=== PATIENT | male | born 1940 | race Caucasian/White ===

== ENCOUNTER → 2018-12-03 | Outpatient (CLI) | payer MEDICARE, BC ==
[~2018-12-03] MED LIST: ASPIR-LOW81 MG PO; AVAPRO; AVAPRO TAB150 MG/TAB PO; CARDURA 8MG TAB8 MG PO; COZAAR100 MG PO; DOXAZOCIN; DOXAZOCIN PO; LEXAPRO 10MG10 MG PO; METOPROLOL SUCC25 MG PO; PROSCAR; PROSCAR 5MG5 MG PO; PROSCAR PO; TOPROL XL100 MG PO; ZOCOR 20MG20 MG PO
== END ==
LOC: COL.RAD 10:30
DX: E04.2 Nontoxic multinodular goiter (principal); M47.812 Spondylosis without myelopathy or radiculopathy, cervical region; I65.23 Occlusion and stenosis of bilateral carotid arteries; I65.03 Occlusion and stenosis of bilateral vertebral arteries; I77.1 Stricture of artery; R59.0 Localized enlarged lymph nodes
CPT/HCPCS: Q9967

== ENCOUNTER → 2018-12-05 | Outpatient (CLI) | payer MEDICARE, BC | LOC: COL.RAD 10:19 | DX: I77.9 Disorder of arteries and arterioles, unspecified (principal); E23.6 Other disorders of pituitary gland; G31.9 Degenerative disease of nervous system, unspecified; I67.82 Cerebral ischemia; R47.01 Aphasia ==

== ENCOUNTER → 2018-12-23 | Outpatient (CLI) | payer MEDICARE, BC | LOC: COL.VAS 08:00 | DX: I35.0 Nonrheumatic aortic (valve) stenosis (principal); I34.0 Nonrheumatic mitral (valve) insufficiency; I51.7 Cardiomegaly ==

== ENCOUNTER 2019-07-26 16:00 | Emergency (ER) | payer MEDICARE, BC ==
[~2019-07-26] VITALS: Ht 172.7 cm; Wt 72.7 kg
[2019-07-26 16:09] VITALS: TEMP 98.9
[2019-07-26 17:31] VITALS: BP 111/75; PULSE 76
== END 2019-07-26 17:32 | disposition home or self-care (01) ==
LOC: COL.ER 16:00
DX: S06.0X0A Concussion without loss of consciousness, initial encounter (principal); I10 Essential (primary) hypertension; R40.2412 Glasgow coma scale score 13-15, at arrival to emergency department; Z79.82 Long term (current) use of aspirin; W19.XXXA Unspecified fall, initial encounter; Y92.009 Unspecified place in unspecified non-institutional (private) residence as the place of occurrence of the external cause

== ENCOUNTER 2021-08-26 21:27 | Emergency (ER) | payer MEDICARE, BC ==
[~2021-08-26] VITALS: Ht 172.7 cm; Wt 77.3 kg
[~2021-08-26 21:27] MED LIST changes: +FLOMAX 0.40.4 MG/CAP PO; +MILK OF MA400 MG/52; +XANAX 0.5MG0.5 MG PO
[2021-08-26 21:37] VITALS: TEMP 97.4
[2021-08-26 22:39] LABS: COLLECTION METHOD IN
[2021-08-26 22:47] LABS: MUCOUS Present (NOT PRESENT); PH 6 (5-8); SQUAMOUS EPITHELIAL None Seen /hpf (0-10); URINE APPEARANCE Hazy (CLEAR/HAZY); URINE BACTERIA Rare /hpf (NONE SEEN); URINE BILIRUBIN Negative (NEGATIVE); URINE BLOOD 2+ (NEGATIVE); URINE CALCIUM OXALATE CRYSTAL Present (NOT PRESENT); URINE COLOR Red (YELLOW); URINE GLUCOSE 1+ (NEGATIVE); URINE KETONE Negative (NEGATIVE); URINE LEUKOCYTE ESTERASE Negative (NEGATIVE); URINE NITRATE Negative (NEGATIVE); URINE PROTEIN(semi-quant) 2+ (NEGATIVE); URINE RBC >50 /hpf (0-2); URINE UROBILINOGEN Negative (NEGATIVE)
[2021-08-26 23:10] VITALS: BP 144/82; PULSE 70
== END 2021-08-26 23:20 | disposition home or self-care (01) ==
LOC: COL.ER 21:27
PROVIDERS: Family Medicine
DX: R33.9 Retention of urine, unspecified (principal)

== ENCOUNTER 2021-08-30 14:21 | Inpatient (IN) | payer MEDICARE, BC ==
[~2021-08-30] VITALS: Ht 177.8 cm; Wt 79.2 kg
[2021-08-30] VITALS (435 sets, daily range): BP systolic 116–199; BP diastolic 61–90; PULSE 48–55; TEMP 97.1–98; O2SAT 87–100
[2021-08-30 14:44] LABS: BASO # 0.1 K/mm3 (0.0-0.2); BASO % 0.6 % (0.0-2.0); EOS # 0.2 K/mm3 (0.0-0.7); EOS % 2.4 % (0.0-4.0); GRAN # 5.9 K/mm3 (1.4-6.5); GRAN % 63.3 % (42.2-75.2); HEMATOCRIT 38.1 % (42.0-52.0); HEMOGLOBIN 12.9 g/dl (13.5-18.0); LYMPH # 2.1 K/mm3 (1.2-3.4); LYMPH % 22.1 % (20.0-51.0); MEAN CELL VOLUME 90 fl (80.0-100.0); MEAN CORPUSCULAR HEMOGLOBIN 30 pg (27-31); MEAN CORPUSCULAR HGB CONC 34 g/dl (33.0-37.0); MONO % 11.1 % (1.7-9.3); PLATELET COUNT 217 K/mm3 (130-400); RED BLOOD COUNT 4.25 M/mm3 (4.20-5.60); REDCELL DISTRIBUTION WIDTH-CV 12.8 % (11.5-14.5)
[2021-08-30 14:48] LABS: INR 1.2 (0.8-3.0)
[2021-08-30 14:51] LABS: PARTIAL THROMBOPLASTIN TIME 28.5 SECONDS (26.0-37.0)
[2021-08-30 15:03] LABS: ALANINE AMINOTRANSFERASE 6 U/L (0-55); ALBUMIN 2.6 gm/dL (3.4-4.8); ALKALINE PHOSPHATASE 59 U/L (40-150); ANION GAP 8 mmol/L (7-16); AST,SGOT 11 U/L (5-34); BILIRUBIN,TOTAL 0.6 mg/dL (0.2-1.2); BLOOD UREA NITROGEN 17 mg/dL (8-26); CALCIUM 7.9 mg/dL (8.4-10.2); CARBON DIOXIDE 22 mmol/L (23-31); CHLORIDE 100 mmol/L (98-107); CREATININE, serum 0.95 mg/dL (0.72-1.25); GLUCOSE 100 mg/dL (70-99); LIPASE 20 U/L (8-78); POTASSIUM 4.1 mmol/L (3.5-4.5); SODIUM 130 mmol/L (136-145); TOTAL PROTEIN 5.6 gm/dL (6.2-8.1)
[2021-08-30 15:04] LABS: ACETAMINOPHEN < 1.0 ug/mL (10-30); ALCOHOL(ethanol),MEDICAL < 10 mg/dL (0-10); SALICYLATE < 5.0 mg/dL (15.0-30.0)
[2021-08-30 15:23] LABS: TROPONIN-I < 0.010 ng/mL (0.00-0.033)
[2021-08-30 15:38] LABS: TRICYCLIC ANTIDEPRESS URINE NEGATIVE
--- NOTE | 2021-08-30 16:15 | NUR ---
PT ADMITTED TO ICU 6 FROM ED WITH OVERDOSE OF XANAX. PT WAS INTUBATED IN THE ED. PT HAS PROPOFOL RUNNING. PT IS SB ON TELE. PT'S BP IN THE 200'S. BEDSIDE AND AWARE. BEDSIDE.
[2021-08-30 16:39] LABS: ARTERIAL BLD GAS TCO2 CT 20.9; ARTERIAL BLOOD GAS BASE EXCESS -1.3 (-2-2); ARTERIAL BLOOD GAS HCO3 20.1 meq/L (22-26); ARTERIAL BLOOD GAS PCO2 25.3 mmHg (35-45); ARTERIAL BLOOD GAS pH 7.52 (7.35-7.45)
[2021-08-30 16:40] LABS: ARTERIAL BLOOD GAS PO2 134.6 mmHg (80-100)
--- NOTE | 2021-08-30 17:25 | NUR ---
Pt's hr in the 40's. bedside. Propofol dc'd.
--- NOTE | 2021-08-30 18:11 | NUR ---
Sedation decreased then stopped due to hr in the 40's. aware.
--- NOTE | 2021-08-30 19:45 | NUR ---
Patient resting quietly in bed. Remains on ventilator, tolerating well. All vitals within normal limits. Patient's , Anastasiia, at bedside. All sedation is currently on hold. Patient minimally responsive to painful stimuli.
[2021-08-30 20:22] LABS: ARTERIAL BLD GAS O2 SATURATION 97.5 % (92-100); ARTERIAL BLOOD GAS BASE EXCESS -1.1 (-2-2); ARTERIAL BLOOD GAS PCO2 32.3 mmHg (35-45); ARTERIAL BLOOD GAS pH 7.45 (7.35-7.45)
--- NOTE | 2021-08-30 20:47 | NUR ---
Poison control updated.
--- NOTE | 2021-08-30 20:48 | NUR ---
Poison control recommends small dose of sedation in order to treat SBPs >190 due to patient's sustained HR in low-mid 40s.
[2021-08-31] VITALS (756 sets, daily range): BP systolic 141–187; BP diastolic 7–90; PULSE 48–92; TEMP 97.1–98.6; O2SAT 85–100
--- NOTE | 2021-08-31 05:16 | NUR ---
PT INTUBATED LESS THAN 24 HOURS
[2021-08-31 06:04] LABS: ARTERIAL BLD GAS O2 SATURATION 98.3 % (92-100); ARTERIAL BLOOD GAS BASE EXCESS -1.5 (-2-2); ARTERIAL BLOOD GAS HCO3 21.1 meq/L (22-26); ARTERIAL BLOOD GAS PCO2 29.7 mmHg (35-45); ARTERIAL BLOOD GAS PO2 111.2 mmHg (80-100); ARTERIAL BLOOD GAS pH 7.47 (7.35-7.45)
[2021-08-31 06:15] LABS: BASO # 0.1 K/mm3 (0.0-0.2); BASO % 0.7 % (0.0-2.0); EOS # 0.3 K/mm3 (0.0-0.7); EOS % 3.5 % (0.0-4.0); GRAN # 5.2 K/mm3 (1.4-6.5); GRAN % 62.5 % (42.2-75.2); HEMOGLOBIN 12.6 g/dl (13.5-18.0); LYMPH # 1.8 K/mm3 (1.2-3.4); LYMPH % 21.5 % (20.0-51.0); MEAN CELL VOLUME 90 fl (80.0-100.0); MEAN CORPUSCULAR HEMOGLOBIN 31 pg (27-31); MEAN CORPUSCULAR HGB CONC 34 g/dl (33.0-37.0); MONO # 0.9 K/mm3 (0.1-0.6); MONO % 11.2 % (1.7-9.3); PLATELET COUNT 202 K/mm3 (130-400); REDCELL DISTRIBUTION WIDTH-CV 13.1 % (11.5-14.5)
[2021-08-31 06:26] LABS: ALBUMIN 2.3 gm/dL (3.4-4.8); CREATININE, serum 0.93 mg/dL (0.72-1.25); MAGNESIUM 2.1 mg/dL (1.6-2.6); PHOSPHOROUS 3.1 mg/dL (2.3-4.7)
--- NOTE | 2021-08-31 10:14 | NUR ---
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 Patient reported to have taken 12 0.5 mg of xanax and was found unresponsive by . Patient currently intubated and sedated. TIM met with patient's Anastasiia ([phone]) at bedside to complete intake. Anastasiia states that the patient has been independent with his ADL's and does not utilize any DME or oxygen at home. PCP is Dr. Del Angel and he utilizes [facility] for medications. Patient does not have a DPOA-HC established. Per Anastasiia the patient has had a significant history of mental health. She states that he has seen , and other practitioners for therapy needs. Anastasiia states that around 8-9 years ago he was sent to inpatient psych. in [place] for PTSD,OCD and anxiety. Anastasiia goes on to say that around [place], family memebers noticed that the patient seemed "good" and that when they got together at [facility], family noticed the patient being more distant. Anastasiia states that the patient has verbalized to her over the past few weeks that his anxitey has been up and making comments about dying. He never verbalized a plan to Anastasiia but did tell her that " i don't think i have the guts". Patient's expressed a strong desire for the patient to get help.
--- NOTE | 2021-08-31 12:33 | NUR ---
PT is hemodynamically stable, VSS, pt has been off sedatives for approx. 1 hour and able to obey simple commands. Demonstartes ability to lift head and hold. PT has been placed on a spontaneous breathing trial with adequate tidal volume and respiratory rate. Nurse and RT bedside. RT removed ETT, and PT had adequate coughand controls airway on own. PT SATS 100 % on RA.
--- NOTE | 2021-08-31 13:29 | NUR ---
PT EXTUBATED, PT CURRENTLY ON ROOM AIR, NO DISTRESS NOTED.
--- NOTE | 2021-08-31 13:53 | NUR ---
Patient's clinical information faxed to all [facility] psych facilities.
--- NOTE | 2021-08-31 15:03 | NUR ---
[facility] contacts this SW for more information on this patient. Clinical teams is still needing to review but will get back with me if they accept.
--- NOTE | 2021-08-31 16:20 | NUR ---
Ashleigh with [facility] states that they are unable to accept this patient due to complex issues. Danitza with [facility] states that they are interested in this patient but their psychiatrist is wanting to see how the patient does after extubation. Agrred to send clinical updates in the morning.
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
[2021-09-01] VITALS (353 sets, daily range): BP systolic 110–179; BP diastolic 58–92; PULSE 56–85; TEMP 97.5–98.7; O2SAT 83–100
--- NOTE | 2021-09-01 06:15 | NUR ---
Patient confused throughout night. Reorientated as needed. Asleep at this time.
[2021-09-01 06:31] LABS: ARTERIAL BLD GAS O2 SATURATION 95.8 % (92-100); ARTERIAL BLD GAS TCO2 CT 25.4; ARTERIAL BLOOD GAS HCO3 24.4 meq/L (22-26); ARTERIAL BLOOD GAS PCO2 31.7 mmHg (35-45); ARTERIAL BLOOD GAS PO2 70.1 mmHg (80-100)
[2021-09-01 06:35] LABS: BASO # 0.1 K/mm3 (0.0-0.2); BASO % 0.9 % (0.0-2.0); EOS # 0.2 K/mm3 (0.0-0.7); EOS % 3.1 % (0.0-4.0); GRAN # 4.1 K/mm3 (1.4-6.5); GRAN % 59.2 % (42.2-75.2); HEMATOCRIT 37.6 % (42.0-52.0); HEMOGLOBIN 12.9 g/dl (13.5-18.0); LYMPH # 1.6 K/mm3 (1.2-3.4); LYMPH % 22.9 % (20.0-51.0); MEAN CELL VOLUME 89 fl (80.0-100.0); MEAN CORPUSCULAR HEMOGLOBIN 30 pg (27-31); MEAN CORPUSCULAR HGB CONC 34 g/dl (33.0-37.0); MEAN PLATELET VOLUME 10.1 fl (7.4-10.4); MONO # 0.9 K/mm3 (0.1-0.6); MONO % 13.3 % (1.7-9.3); PLATELET COUNT 242 K/mm3 (130-400); RED BLOOD COUNT 4.25 M/mm3 (4.20-5.60); REDCELL DISTRIBUTION WIDTH-CV 12.9 % (11.5-14.5)
[2021-09-01 06:50] LABS: ALBUMIN 2.4 gm/dL (3.4-4.8); CALCIUM 8.2 mg/dL (8.4-10.2); CREATININE, serum 0.75 mg/dL (0.72-1.25); MAGNESIUM 1.9 mg/dL (1.6-2.6); PHOSPHOROUS 2.6 mg/dL (2.3-4.7); POTASSIUM 3.7 mmol/L (3.5-4.5)
--- NOTE | 2021-09-01 07:00 | NUR ---
PT RESTING IN BED. PT HYPERTENSIVE. PT HAS PRN HYDRALAZINE ORDERED. BEDALARM ACTIVE. NO NEEDS AT THIS TIME. CALL LIGHT WITHIN REACH,
--- NOTE | 2021-09-01 07:25 | NUR ---
Report given to AURE Cardona
--- NOTE | 2021-09-01 10:08 | NUR ---
PSYCH REFERAL FORM FAXED.
--- NOTE | 2021-09-01 10:18 | NUR ---
THIS RN CALLED REGARDING HYPERTENTION. ON ANOTHER CALL AND STATES WILL CALL BACK.
--- NOTE | 2021-09-01 10:44 | NUR ---
RETURNED CALL AND NOTIFIED OF HTN. HOME METOPROLOL RESTARTED.
--- NOTE | 2021-09-01 12:58 | NUR ---
SW attended rounding this morning. Per hospitalist team, they would still like the patient to have a psych screen, even though it is not required for [facility], due to this being an intentional overdose. is not on service for two weeks. Patient's RN faxed clinical information to [facility]. Hansa met with patient's during rounding and provided an update. Anastasiia becomes tearful and upset that the patient cannot be screened by . Informed her cynthia ti have been speaking with [facility] in [place] as they are the only facility that has gotten back with me. Anastasiia states that this will be "distressing" for the patient as she is his "soundng board" but verbalized her understanding that this is the best thing for the patient. Spoke with Danitza (media job titles) at [facility] and informed her that Urology has been consulted. Clinical updates faxed to all [facility] facilities.
--- NOTE | 2021-09-01 21:12 | NUR ---
BEDSIDE SHIFT REPORT RECEIVED FROM AURE PIPER. AT BEDSIDE WITH PT RESTING IN BED. LINES RUNNING APPROPRIATELY (SEE DRIP FLOW SHEET). FLOLEY DRAINING APPROPRIATELY. VSS, NO ACUTE CHANGES AT THIS TIME
[2021-09-02] VITALS (44 sets, daily range): BP systolic 101–165; BP diastolic 55–80; PULSE 57–75; TEMP 97.8–98.9; O2SAT 99
--- NOTE | 2021-09-02 06:30 | NUR ---
REPORT RECEIVED FROM AURE GOMEZ; PATIENT HAD CONFUSION OVERNIGHT AND TRIED TO GET OUT OF BED SEVERAL TIMES AND WAS ALSO PULLING AT LINES AND TUBES. PATIENT IS CURRENTLY RESTING COMFORTABLY IN BED. PATIENT HAS LR RUNNING THROUGH A PERIPHERAL LINE IN THE RIGHT ARM; HUANG CATHETER IS IN PLACE. PATIENT'S VITAL SIGNS ARE WITHIN NORMAL LIMITS THIS MORNING.
[2021-09-02 07:23] LABS: BASO % 0.6 % (0.0-2.0); EOS # 0.4 K/mm3 (0.0-0.7); GRAN # 3.3 K/mm3 (1.4-6.5); GRAN % 49.6 % (42.2-75.2); HEMATOCRIT 41.7 % (42.0-52.0); HEMOGLOBIN 14.3 g/dl (13.5-18.0); LYMPH # 1.9 K/mm3 (1.2-3.4); LYMPH % 28.6 % (20.0-51.0); MEAN CELL VOLUME 90 fl (80.0-100.0); MEAN CORPUSCULAR HEMOGLOBIN 31 pg (27-31); MEAN CORPUSCULAR HGB CONC 34 g/dl (33.0-37.0); MEAN PLATELET VOLUME 9.9 fl (7.4-10.4); MONO # 0.9 K/mm3 (0.1-0.6); MONO % 14.4 % (1.7-9.3); PLATELET COUNT 243 K/mm3 (130-400); RED BLOOD COUNT 4.63 M/mm3 (4.20-5.60)
[2021-09-02 07:36] LABS: ALBUMIN 2.5 gm/dL (3.4-4.8); CALCIUM 8.5 mg/dL (8.4-10.2); CREATININE, serum 0.83 mg/dL (0.72-1.25); PHOSPHOROUS 2.5 mg/dL (2.3-4.7); POTASSIUM 4.3 mmol/L (3.5-4.5)
--- NOTE | 2021-09-02 12:00 | NUR ---
Talked with patient & about plan of care related to psychiatric screen. Patient acknowledge that he took Xanax due to suicidal thoughts due to his urinary problems not being resolved. Suicidal thoughts, OCD & PTSD are not new for patient. He has been receiving neuro imaging with Dr. Patterson & is seeing a therapist (Mark Guy). Patient denied suicidal thoughts or a plan at this time. States that he has some relief with urinary problems at this time, but it reluctant to believe that they are resolved for good. Patient & aware that waiting medical clearance before psych screen can be completed by [facility]. [facility] facility to assess at 1300 today for potential placement. Discussed transfer to floor & stated that it would be great to get out of ICU, have a window, a real shower & establish a routine. Dr. Marcelo called with an update. He had requested that [facility] complete a suicide screen during his morning rounds; explained how process works & the need for medical clearance before [facility] would consider screen. Express understanding & plan to transfer to floor later this afternoon.
--- NOTE | 2021-09-02 13:46 | NUR ---
Chad from [facility] arrive to unit. Meets with the patient's prior to meeting with the patient.
--- NOTE | 2021-09-02 14:34 | NUR ---
vegetable farmworker met with [facility] post meeting with the patient. Chad states that the meeting went well and the patient is agreeable to go to their facility once medically ready. He states that their biomedical equipment technician would like for the patient to keep urinating on his own for a few days but if he is needing to have a catheter placed again they would be able to manage this at their facility. At this time, they would like the patient to get out of the ICU for a few days. Informed him that the plan is to get the patient moved up to the floor later today. Chad just asks for clinical updates to be faxed over the weekend. SW met with patient and patient's at bedside. Patient verbalized his agreement with going to [facility] once ready for discharge. is also in agreement with this time. Physician team updated that [facility] would be able to accept this patient on Sunday if he is medically stable.
--- NOTE | 2021-09-02 16:30 | NUR ---
Pt up from ICU around 1530. Pt is alert and oriented. Lung sounds clear, heart rate regular. Pt does have telemetry on, IV to INT x2 to forearm. Suicide precautions were brought up for clarification. Dr Marcelo, Bobbi RN curtain supervisor and Lakeisha RN curtain supervisor to discuss what precautions pt would be on.
--- NOTE | 2021-09-02 17:13 | NUR ---
Pt on every 30 minutes checks at this time. Pt is in gaviria gown and all equipment moved out that we could. Pts is present in the room.
--- NOTE | 2021-09-02 19:44 | NUR ---
PT SITTING ON COUCH TALKING WITH . PT DENIES ANY PAIN AT THIS TIME.
[2021-09-03] VITALS (30 sets, daily range): BP systolic 125–179; BP diastolic 68–84; PULSE 54–79; TEMP 97.4–98.8
[2021-09-03 06:23] LABS: BASO # 0.1 K/mm3 (0.0-0.2); EOS # 0.5 K/mm3 (0.0-0.7); EOS % 7.8 % (0.0-4.0); GRAN # 2.8 K/mm3 (1.4-6.5); GRAN % 44.8 % (42.2-75.2); HEMATOCRIT 38.2 % (42.0-52.0); HEMOGLOBIN 12.8 g/dl (13.5-18.0); LYMPH # 2.2 K/mm3 (1.2-3.4); LYMPH % 34.3 % (20.0-51.0); MEAN CELL VOLUME 90 fl (80.0-100.0); MEAN CORPUSCULAR HEMOGLOBIN 30 pg (27-31); MEAN CORPUSCULAR HGB CONC 34 g/dl (33.0-37.0); MONO # 0.7 K/mm3 (0.1-0.6); MONO % 11.3 % (1.7-9.3); PLATELET COUNT 258 K/mm3 (130-400); RED BLOOD COUNT 4.23 M/mm3 (4.20-5.60); REDCELL DISTRIBUTION WIDTH-CV 12.9 % (11.5-14.5)
[2021-09-03 06:35] LABS: ALBUMIN 2.4 gm/dL (3.4-4.8); CALCIUM 8.4 mg/dL (8.4-10.2); CREATININE, serum 0.86 mg/dL (0.72-1.25); PHOSPHOROUS 3.2 mg/dL (2.3-4.7); POTASSIUM 3.9 mmol/L (3.5-4.5)
--- NOTE | 2021-09-03 07:31 | NUR ---
Patient sitting up in bed eating breakfast independently. A&Ox4. VSS. IV CDI. Denies pain and discomfort. Visible tremors in hands. Independent in the room. Suicide precautions Q30 min checks in place. No further needs expressed. Call light within reach
--- NOTE | 2021-09-03 13:15 | NUR ---
assisting with showering the patient. Patient slipped on the towel on the floor and hit his left big toe and may have hit his head. Nursing staffx2 assisted the patient up and to the bed. No visual wound or bruise on the patients head. Dr To notified. VSS. Denies pain or discomfort. Nurse informed the and patient that chair and bed alarms will be used. Patient not happy, but verbalized an understanding. Call light within reach. Chair alarm on
--- NOTE | 2021-09-03 17:32 | NUR ---
Patient resting in bed, A&Ox4. VSS. IV CDI. Denies pain and discomfort. Patient has been calling to get up to use the bathroom. Call light within reach. Bed alarm on
--- NOTE | 2021-09-03 19:08 | NUR ---
PT LAYING IN BED RESTING. DENIES COMPLAINTS OF PAIN AT THIS TIME.
[2021-09-04] VITALS (20 sets, daily range): BP systolic 110–203; BP diastolic 56–92; PULSE 57–72; TEMP 97.6–98.8
[2021-09-04 07:21] LABS: ALBUMIN 2.6 gm/dL (3.4-4.8); CALCIUM 8.4 mg/dL (8.4-10.2); CREATININE, serum 0.91 mg/dL (0.72-1.25); MAGNESIUM 2.2 mg/dL (1.6-2.6); PHOSPHOROUS 2.8 mg/dL (2.3-4.7)
--- NOTE | 2021-09-04 08:00 | NUR ---
Patient assisted to the recliner with 1xassist. A&Ox4. VSS. BP hypertensive, patient reporting being anxious as well. Denies pain and discomfort. IV CDI. Modified suicide precautions in place. at the bedside. Cane with ambulation. Call light within reach. Chair alarm on
[2021-09-04 08:16] LABS: BASO # 0.1 K/mm3 (0.0-0.2); BASO % 0.8 % (0.0-2.0); EOS # 0.4 K/mm3 (0.0-0.7); EOS % 6.6 % (0.0-4.0); GRAN # 3.5 K/mm3 (1.4-6.5); HEMATOCRIT 39.6 % (42.0-52.0); HEMOGLOBIN 13.3 g/dl (13.5-18.0); LYMPH # 1.9 K/mm3 (1.2-3.4); LYMPH % 29.4 % (20.0-51.0); MEAN CELL VOLUME 90 fl (80.0-100.0); MEAN CORPUSCULAR HEMOGLOBIN 30 pg (27-31); MEAN CORPUSCULAR HGB CONC 34 g/dl (33.0-37.0); MEAN PLATELET VOLUME 10.1 fl (7.4-10.4); MONO # 0.6 K/mm3 (0.1-0.6); MONO % 9.3 % (1.7-9.3); PLATELET COUNT 301 K/mm3 (130-400); RED BLOOD COUNT 4.41 M/mm3 (4.20-5.60); REDCELL DISTRIBUTION WIDTH-CV 12.8 % (11.5-14.5)
--- NOTE | 2021-09-04 12:54 | NUR ---
SW informed by [facility] that patient did not qualify for services due to not having suicide ideation or thoughts of harming self. At this time services denied. SW contacted by nursing staff to assist with coordinating services with [facility] for a screen. Facility called to coordinate screen and documenation faxed to facility. TIM informed by nurse that screen was completed and [facility] recommended services to [facility] and would be sending over documentation to be faxed to facility. Once documenation is reviewed by hospitalist patient could potential DC today. SW will continue to follow.
[2021-09-04] MEDS ORDERED: ASPIRIN 81M81 MG/TA2 PO (14:49)
--- NOTE | 2021-09-04 15:30 | NUR ---
Discharge paperwork reviewed with the patient and . Patient and verbalized an understanding. IV removed, tip intact. Nurse assisted with dressing the patient and transfering the patient to the ED to awaiting vehicle. No further needs expressed.
== END 2021-09-04 15:30 | disposition home or self-care (01) | DRG 918 ==
LOC: COL.ER 14:21 → ICU 15:13 → SURG 09-02 15:00
PROVIDERS: Emergency Medicine; Internal Medicine Pulmonary Disease; ADMIT Internal Medicine
PROC: 0BH17EZ Insertion of Endotracheal Airway into Trachea, Via Natural or Artificial Opening (ICD-10-PCS; principal; 2021-08-30)
PROC: 5A1935Z Respiratory Ventilation, Less than 24 Consecutive Hours (ICD-10-PCS; 2021-08-30)
DX: T42.4X2A Poisoning by benzodiazepines, intentional self-harm, initial encounter (principal); E87.1 Hypo-osmolality and hyponatremia; E87.3 Alkalosis; I25.10 Atherosclerotic heart disease of native coronary artery without angina pectoris; F42.9 Obsessive-compulsive disorder, unspecified; N40.1 Benign prostatic hyperplasia with lower urinary tract symptoms; R33.8 Other retention of urine; I11.9 Hypertensive heart disease without heart failure; F41.9 Anxiety disorder, unspecified; G93.89 Other specified disorders of brain; R01.1 Cardiac murmur, unspecified; Z95.1 Presence of aortocoronary bypass graft; Z90.49 Acquired absence of other specified parts of digestive tract; Z87.891 Personal history of nicotine dependence; Y92.89 Other specified places as the place of occurrence of the external cause; Z23 Encounter for immunization
CPT/HCPCS: 99223-AI; 99232-AI; 99233-AI; 99239; J0330; J0360; J1650; J2543; J2704; J3010; J7030; J7120

== ENCOUNTER 2022-04-18 11:27 | Emergency (ER) | payer MEDICARE, BC ==
[~2022-04-18] VITALS: Ht 177.8 cm; Wt 79.1 kg
[~2022-04-18 11:27] MED LIST changes: +ASPIRIN 81M81 MG/TA2 PO
[2022-04-18 13:12] VITALS: TEMP 97
[2022-04-18 14:35] LABS: HEMATOCRIT 41.7 % (42.0-52.0); HEMOGLOBIN 14.3 g/dl (13.5-18.0); MEAN CELL VOLUME 88 fl (80.0-100.0); MEAN CORPUSCULAR HEMOGLOBIN 30 pg (27-31); MEAN CORPUSCULAR HGB CONC 34 g/dl (33.0-37.0); MEAN PLATELET VOLUME 10.1 fl (7.4-10.4); PLATELET COUNT 243 K/mm3 (130-400); RED BLOOD COUNT 4.72 M/mm3 (4.20-5.60); REDCELL DISTRIBUTION WIDTH-CV 12.8 % (11.5-14.5)
[2022-04-18 14:42] LABS: ALBUMIN 3.2 gm/dL (3.4-4.8); BILIRUBIN,TOTAL 0.9 mg/dL (0.2-1.2); C-REACTIVE PROTEIN 1.71 mg/dL (0.00-0.50); CALCIUM 8.4 mg/dL (8.4-10.2); CREATININE, serum 1.04 mg/dL (0.72-1.25); POTASSIUM 4.1 mmol/L (3.5-4.5); TOTAL PROTEIN 6.4 gm/dL (6.2-8.1)
[2022-04-18 15:08] LABS: BAND 3 % (0-10); LYMPHOCYTE 28 % (20.0-51.0); NEUTROPHILS 54 % (42.0-75.2)
[2022-04-18 15:10] LABS: PLATELET ESTIMATE NORMAL (NORMAL)
[2022-04-18 15:34] LABS: COLLECTION METHOD CLEAN CATCH
[2022-04-18 16:03] LABS: SQUAMOUS EPITHELIAL None Seen /hpf (0-10); URINE BACTERIA None Seen /hpf (NONE SEEN); URINE RBC 0-2 /hpf (0-2)
[2022-04-18 16:04] LABS: URINE APPEARANCE Clear (CLEAR/HAZY); URINE BLOOD Negative (NEGATIVE); URINE COLOR Yellow (YELLOW); URINE GLUCOSE Negative (NEGATIVE); URINE KETONE TRACE (NEGATIVE); URINE NITRATE Negative (NEGATIVE); URINE PROTEIN(semi-quant) Negative (NEGATIVE); URINE UROBILINOGEN 0.2 (NEGATIVE)
[2022-04-18 17:48] VITALS: BP 118/67; PULSE 79
== END 2022-04-18 17:49 | disposition left against medical advice (07) ==
LOC: COL.ER 11:27
PROVIDERS: Emergency Medicine
DX: E87.1 Hypo-osmolality and hyponatremia (principal); R29.6 Repeated falls; R53.1 Weakness; Z28.310 Unvaccinated for COVID-19
CPT/HCPCS: J2550; J7030; Q9967

== ENCOUNTER 2022-05-24 09:19 | Emergency (ER) | payer MEDICARE, BC ==
[~2022-05-24] VITALS: Ht 175.3 cm; Wt 79.1 kg
[2022-05-24 09:41] LABS: BASO # 0.1 K/mm3 (0.0-0.2); BASO % 0.6 % (0.0-2.0); EOS # 0.2 K/mm3 (0.0-0.7); EOS % 2.6 % (0.0-4.0); GRAN # 5.6 K/mm3 (1.4-6.5); GRAN % 64.6 % (42.2-75.2); HEMATOCRIT 42.9 % (42.0-52.0); HEMOGLOBIN 14.5 g/dl (13.5-18.0); LYMPH # 1.8 K/mm3 (1.2-3.4); LYMPH % 20.3 % (20.0-51.0); MEAN CELL VOLUME 90 fl (80.0-100.0); MEAN CORPUSCULAR HEMOGLOBIN 30 pg (27-31); MEAN CORPUSCULAR HGB CONC 34 g/dl (33.0-37.0); MEAN PLATELET VOLUME 10.3 fl (7.4-10.4); MONO % 11.4 % (1.7-9.3); PLATELET COUNT 252 K/mm3 (130-400); RED BLOOD COUNT 4.77 M/mm3 (4.20-5.60); REDCELL DISTRIBUTION WIDTH-CV 13.7 % (11.5-14.5)
[2022-05-24 10:11] LABS: INR 1.2 (0.8-3.0); PROTHROMBIN TIME 13.6 SECONDS (9.7-12.8)
[2022-05-24 10:18] LABS: ALANINE AMINOTRANSFERASE 13 U/L (0-55); ALBUMIN 3.2 gm/dL (3.4-4.8); ALKALINE PHOSPHATASE 58 U/L (40-150); ANION GAP 9 mmol/L (7-16); AST,SGOT 17 U/L (5-34); BLOOD UREA NITROGEN 15 mg/dL (8-26); CALCIUM 8.8 mg/dL (8.4-10.2); CARBON DIOXIDE 22 mmol/L (23-31); CHLORIDE 108 mmol/L (98-107); CREATININE, serum 1.12 mg/dL (0.72-1.25); GLUCOSE 138 mg/dL (70-99); SODIUM 139 mmol/L (136-145); TOTAL PROTEIN 6.5 gm/dL (6.2-8.1)
[2022-05-24 10:38] LABS: TSH w REFLEX 0.647 uIU/mL (0.350-4.940)
[2022-05-24 10:41] LABS: TROPONIN-I < 0.010 ng/mL (0.00-0.033)
[2022-05-24] MEDS ORDERED: COLACE 100100 MG/CAP PO (10:41)
[2022-05-24] MEDS ORDERED: PROTONIX 40MG T40 MG PO (10:42)
[2022-05-24 11:37] VITALS: BP 155/79; PULSE 65; TEMP 97.9
== END 2022-05-24 11:54 | disposition short-term general hospital (02) ==
LOC: COL.ER 09:19
PROVIDERS: Emergency Medicine
DX: S06.5X0A Traumatic subdural hemorrhage without loss of consciousness, initial encounter (principal); S12.100A Unspecified displaced fracture of second cervical vertebra, initial encounter for closed fracture; I10 Essential (primary) hypertension; Z20.822 Contact with and (suspected) exposure to COVID-19; W18.30XA Fall on same level, unspecified, initial encounter; W22.8XXA Striking against or struck by other objects, initial encounter; Y92.009 Unspecified place in unspecified non-institutional (private) residence as the place of occurrence of the external cause
CPT/HCPCS: J7050

== ENCOUNTER 2022-05-30 13:03 | Inpatient (IN) | payer MEDICARE, BC ==
[~2022-05-30] VITALS: Ht 175.3 cm; Wt 80.0 kg
[~2022-05-30 13:03] MED LIST changes: +COLACE 100100 MG/CAP PO; +PROTONIX 40MG T40 MG PO
[2022-05-30] MEDS ORDERED: KEPPRA 500MG500 MG PO (13:32)
[2022-05-30] MEDS ORDERED: TYLENOL 500MG500 MG PO (13:33)
[2022-05-30] MEDS ORDERED: METAMUCIL PO (13:36)
[2022-05-30] MEDS ORDERED: SENNA-S 50 MG-81 TAB PO (13:38)
[2022-05-30 13:44] VITALS: BP 120/64; PULSE 59; TEMP 97.6
--- NOTE | 2022-05-30 15:19 | NUR ---
Pt arrived to unit around 1330 via wheelchair and escorted by his . Pt is a/o x 4, answers questions readily and appropriately. Per report, pt has had multiple falls at home. Pt required CGA to transfer from wheelchair to bed w/ gait belt. Per transfer report, pt has occasional forgetfulness at night and has sometimes been irritable. Last BM was 05/29. [place] collar is on. Skin is intact except for right scalp incision that is BLAINE. [place] were removed at [facility] prior to his discharge. Valuables were denied by the patient. Orientation provided to room/unit. Pt had no further questions. Call light is in his reach. Bed alarm is on.
[2022-05-30 17:45] VITALS: BP 130/51; PULSE 68; TEMP 98.4
--- NOTE | 2022-05-30 18:52 | NUR ---
Pt noted to have a red but blanchable area to his rt. elbow. This area is non-tender. Mepilex is on
--- NOTE | 2022-05-30 19:35 | NUR ---
PATIENT SLEEPING, AWAKENS TO NAME CALLED. BED EXIT ALARM ON, CALL LIGHT IN REACH. PATIENT COOPERATIVE AT THIS TIME. SPEAKS CLEARLY.
--- NOTE | 2022-05-30 19:36 | NUR ---
RECEIVED CHANGE OF SHIFT REPORT FROM DAY SHIFT RN.
[2022-05-30 20:50] VITALS: BP 185/93; PULSE 77
--- NOTE | 2022-05-30 21:21 | NUR ---
PATIENT RESTLESS AND AGITATED, DEMANDED THAT HIS BE CALLED, PATIENT SPOKE WITH , TO COME TO HOSPITAL TO HELP PATIENT GET BACK TO BED.
[2022-05-30 21:35] VITALS: BP 163/80; PULSE 71
--- NOTE | 2022-05-30 21:37 | NUR ---
AND FAMILY PRESENT AT BEDSIDE AT THIS TIME, HELPING PATIENT TO SETTLE DOWN FOR SLEEP. PATIENT COOPERATIVE WITH FAMILY PRESENT. EXIT ALARM ON WHEN PATIENT BACK IN BED, CALL LIGHT IN REACH.
--- NOTE | 2022-05-31 01:55 | NUR ---
OBSERVED PATIENT RESTLESS, WHEN ASKED, EXPRESS NEED TO VOID, PATIENT AMBULATED TO BATHROOM WITH FREQUENT CUES TO PICK FEET UP WITH WALKING, OBSERVED SHUFFLING GAIT WITH LLE DELAY IN STRIDE. PATIENT COOPERATIVE, WAS NOT ABLE TO URINATE INTO STOOL DUE TO SEMIWAKEFUL STATE, URINATED ON FLOOR AND ONTO PJ BOTTOMS. PATIENT COOPERATIVE TO HAVE PJ BOTTOMS REMOVED AND DISPOSABLE BRIEFS CHANGED. PATIENT BACK TO BED COOPERATIVELY WITH NO AGITATED BEHAVIORS OBSERVED.
--- NOTE | 2022-05-31 02:33 | NUR ---
PATIENT RESTLESS, TRYING TO GET OUT OF BED, SET OFF EXIT ALARM. EXPRESS NEED TO VOID IN BATHROOM. REQUIRED CONSTANT CUES TO AMBULATE WITHOUT SHUFFLING GAIT. NO AGITATED BEHAVOIR OBSERVED AT THIS TIME.
--- NOTE | 2022-05-31 05:02 | NUR ---
PATIENT AWAKE, AMBULATED TO BATHROOM THEN REQUESTED TO GET DRESSED IN STREET CLOTHES WITH SOME ASSIST FROM STAFF TO GET BOTTOMS AND SOCKS ON AND NEEDED ASSIST TO BUTTON UP SHIRT AFTER PATIENT ABLE TO GET SHIRT ON WITH NO ASSIST FROM STAFF. PATIENT COOPERATIVE AND ANSWERS QUESTIONS FROM STAFF APPROPRIATELY AT THIS TIME. SPOKE WITH ON PERSONAL CELL PHONE TO CONFIRM WHEN SHE WILL COME VISIT HIM THIS MORNING. PATIENT RESTING ON TOP OF MADE UP BED WITH STREET CLOTHES ON WHILE WATCHING TV, EXIT ALARM ON WITH CALL LIGHT IN REACH.
[2022-05-31 06:16] VITALS: BP 132/50; PULSE 51; TEMP 98.1
--- NOTE | 2022-05-31 07:21 | NUR ---
CHANGE OF SHIFT REPORT GIVEN TO DAY SHIFT RNCORA.
--- NOTE | 2022-05-31 08:30 | NUR ---
PATIENT IS ORIENTED X2 BUT DISPLAYS OCCATIONAL CONFUSION/FORGETFULNESS. PATIENT IS DROWSY THIS AM AND FREQUENTLY FALLING ASLEEP. VSS. NO COMPLAINTS. RIGHT HEAD INCISION IS WELL APPROXIMATED AND BLAINE. NO C/O N/V. TOOK AM MEDS WITHOUT ISSUES. HEAD TO TOE ASSESSMENT COMPLETE. GAIT UNSTEADY, WEAK. 1 ASSIST WITH WALKER. HIGH FALL RISK. PT/OT/ST CONSULTED. NO OTHER NEEDS AT THIS TIME. PT AT BEDSIDE.
--- NOTE | 2022-05-31 16:21 | NUR ---
Offset Press Operator Apprentice met with Patient and his at bedside to conduct Care Managment assessment and review treatment team notes. Patient verrified that he lives in [place] with his and reported that he has his grandchildren in the home throughout the day for nearly half the week on agerage. PAtient is established with PCP and insurance. Patient denies the use of O2, DME, and home health service prior to admission. Patient was not interested in AD at this time. On review of Patient's treatment team notes, SW briefed Patient of the process in which the treatment team evaluates progress through scaling. SW informed Patient that it is reccomended to have a family meeting next week, suggesting having his and adult children attend.
[2022-05-31 18:11] VITALS: BP 151/62; PULSE 58; TEMP 97.4
--- NOTE | 2022-05-31 20:40 | NUR ---
PATIENT IS RESTING IN BED.PATIENT IS ALERT.PATIENT DENIES PAIN.PATIENT TAKES PILLS WHOLE WITH NO TROUBLE.PATIENT WALKS TO THE BATHROOM WITH A WALKER AND GB.PATIENT'S GAIT IS STEADY.PATIENT DOES NOT CALL FOR HELP.PATIENT HAS REFUSED TO CHANGE INTO THE HOSPITAL GOWN AND TAKE OFF HIS SHOES.BED ALARM IS ON.NO OTHER NEED SAT THIS TIME.
--- NOTE | 2022-06-01 05:20 | NUR ---
PATIENT IS ASLEEP AT THIS TIME.NO PAIN REPORTED.SAFETY MEASURES IN PLACE.NO OTHER NEEDS AT THIS TIME.
[2022-06-01 05:50] VITALS: BP 161/69; PULSE 72; TEMP 97.3
[2022-06-01 07:13] VITALS: BP 164/62; PULSE 62; TEMP 98.1
--- NOTE | 2022-06-01 14:48 | NUR ---
Has lack of transportation kept you from medical appts, meetings, work, or from getting things needed for daily living? NO How often do you feel lonely or isolated from those around you? SOMETIMES Over the past 5 days, how much of the time has pain made it hard for you to sleep? OCCASIONALLY Over the past 5 days, how often have you limited your participation in therapy due to pain? OCCASIONALLY Over the past 5 days, how often have you limited your day-to-day activities because of pain? OCCASIONALLY Have you had 2 or more falls in the past year or any fall with an injury? YES Did you have major surgery during the 100 days prior to admission? YES
[2022-06-01 17:53] VITALS: BP 119/43; PULSE 60; TEMP 97.7
--- NOTE | 2022-06-01 18:19 | NUR ---
Shift summary 0700-present: Pt Ox4, VSS, denies feeling dizzy or lightheaded upon standing. Ambulates well with walker and SBA. Needs reinforcement r/t use of walker. Sutures to R head CDI, VOLUNTEER PATIENT REPRESENTATIVE. Pt denies pain. [place] collar remains to neck. Pt had shower today. Soft formed BM x 2.
--- NOTE | 2022-06-01 21:00 | NUR ---
ASPEN COLLAR IN PLACE.
--- NOTE | 2022-06-01 21:00 | NUR ---
PT SITTING UP IN RECLINER. ALARM SOUNDED EARLIER. FOUND PT OUT OF CHAIR, AMB TOWARD BR WITHOUT WALKER. ASSISTED TO BR WITH WALKER. VOIDED IN URINAL. ASSISTED BACK TO CHAIR. REMINDED PT TO USE CALL LIGHT AND WAIT FOR STAFF TO ASSIST. PT NOT HAPPY. PT HAS VERY POOR SAFETY JUDGEMENT. DENIES PAIN. CHAIR ALARM SET. CALL LIGHTIN REACH.
[2022-06-02 05:46] VITALS: BP 151/57; PULSE 57; TEMP 97.6
--- NOTE | 2022-06-02 12:39 | NUR ---
Residency Coordinator contacted Anastasiia, Patient's , to schedule a treatment team meeting with the family. Anastasiia reported that 1130 will work for her and her adult children to attend.
--- NOTE | 2022-06-02 14:01 | NUR ---
Admission QIM scores were reviewed by the team. Code of 5 chosen for eating was determined by team discussion to be the most usual performance before interventions for this patient during the assessment period. Code of 3 chosen for oral hygiene was determined by team discussion to be the most usual performance before interventions for this patient during the assessment period. Code of 3 chosen for toilet hygiene was determined by team discussion to be the most usual performance before interventions for this patient during the assessment period. Code of 2 chosen for putting on/taking off footwear was determined by team discussion to be the most usual performance before interventions for this patient during the assessment period. Code of 4 chosen for sit to stand was determined by team discussion to be the most usual performance for this patient during the discharge assessment period. Code of 3 chosen for chair/bed to chair transfer was determined by team discussion to be the most usual performance before interventions for this patient during the assessment period. Code of 3 chosen for walk 10 feet was determined by team discussion to be the most usual performance for this patient during the discharge assessment period. Code of 3 chosen for walk 50 feet w/ 2 turns was determined by team discussion to be the most usual performance before interventions for this patient during the assessment period. Code of 3 chosen for walk 150 feet was determined by team discussion to be the most usual performance before interventions for this patient during the assessment period.--Monica Hoffman,
[2022-06-02 17:17] VITALS: BP 125/52; PULSE 60; TEMP 98.2
--- NOTE | 2022-06-02 18:39 | NUR ---
Shift summary 0630-present: VSS, afebrile. Pt Ox4, gets mildly confused toward end of shift. Uses call light and BR appropriately prior to confusion. Needs queing with walker use otherwise steady gait. Denies pain. Sutures to R scalp CDI, sutures intact.
--- NOTE | 2022-06-02 20:30 | NUR ---
CAN BE IMPULSIVE AND NOT USE THE CALL LIGHT FOR HELP, BED ALARM SET. HAS ASPEN COLLAR ON, RE-ADJUSTED FOR BETTER FIT. HAS MEDS GIVEN, TAKES 2 AT A TIME, SWALLOWS WITHOUT PROBLEM. DOES NOT WANT TO PUT A GOWN ON AT THIS TIME.
--- NOTE | 2022-06-03 04:04 | NUR ---
USED CALL LIGHT FOR ASSIST TO BATHROOM, GAIT STEADY WITH WALKER. VOIDS AND BACK TO BED, BED ALARM SET.
[2022-06-03 05:03] VITALS: BP 145/70; PULSE 61; TEMP 97.7
--- NOTE | 2022-06-03 06:56 | NUR ---
Shift report received from night RN. Pt awake and lying supine in bed. He denies pain/discomfort. Denies other needs. Call light is in his reach. Bed alarm is on.
--- NOTE | 2022-06-03 09:20 | NUR ---
Pt resting supine in bed. was here this morning to bring him coffee. Rt scalp incision remains well approximated, CDI. Red, blanchable area remains to R. elbow - dressing changed and Allevyn foam dsg applied. [place] collar is on. Pt denies pain/discomfort. Denies other needs. Call light is in his reach. Bed alarm is on.
--- NOTE | 2022-06-03 09:36 | NUR ---
Pt is off the unit for Group Therapy.
[2022-06-03 16:52] VITALS: BP 159/63; PULSE 55; TEMP 97.4
--- NOTE | 2022-06-03 19:25 | NUR ---
CHAIR ALARM SOUNDING. FOUND PT TRANSFERED HIMSELF TO BED. REMINDED PT TO USE CALL LIGHT. HE RELATED SOMETIMES HE USES IT. CALL LIGHT IN REACH BED ALARM SET.
--- NOTE | 2022-06-03 20:25 | NUR ---
PT ASSISTED BACK UP TO RECLINER. CHAIR ALARM SET. CALL LIGHT IN REACH. PT ORIENTED TO TIME, PLACE, . BUT FORGETFUL USING CALL LIGHT. PT CALLING ON HIS CELL PHONE TO COME GET HIM. TOOK EVENING MEDICATIONS WITHOUT DIFFICULTY. ASPEN COLLAR IN PLACE.
--- NOTE | 2022-06-03 20:30 | NUR ---
HERE TO PROVIDE EMOTIONAL SUPPORT TO PT. PT ANXIOUS. WANTS TO GO HOME. PT RELATES HE WILL SLEEP IN HIS CLOTHES ON TOP OF THE COVERS LIKE AT HOME. RELATES HE SLEEPS LIKE THAT AT HOME. NOT READY TO GO TO BED YET. WILL STAY ALITTLE LONGER.
--- NOTE | 2022-06-04 01:28 | NUR ---
BED ALARM SOUNDING. PT UP IN ROOM. LOOKING FOR BR. CONFUSED. ASSISTED TO BR. VOIDED PER URINAL. ASSSISTED BACK TO BED. PT REFUSES TO CHANGE CLOTHING TO NIGHT CLOTHES OR TAKE SHOES AND SOCKS OFF. BED ALARM SET. CALL LIGHT IN REACH. PT DENIES PAIN.
--- NOTE | 2022-06-04 04:03 | NUR ---
BED ALARM SOUNDING. PT STANDING AT SIDE OF BED. ASSISTED TO BR THEN BACK TO BED. NO OTHER NEEDS. CALL LIGHT IN REACH. BED ALARM SET.
[2022-06-04 06:14] VITALS: BP 147/64; PULSE 66; TEMP 98.1
--- NOTE | 2022-06-04 07:09 | NUR ---
Shift report received from table games shift manager RN.
--- NOTE | 2022-06-04 09:22 | NUR ---
Pt sleeping supine in bed. was here for a short visit and will come by later today. Pt denies pain or discomfort. States he would like to take a nap and then take a walk later. [place] collar is on. Call light is in his reach. Bed alarm is on.
--- NOTE | 2022-06-04 11:18 | NUR ---
Pt up to ambulate w/ nurse in hallways using a FWW, gait belt
--- NOTE | 2022-06-04 12:39 | NUR ---
here to bring pt new clothing. While assisting pt with changing his pants, patient has reddened, dry, rough, skin with scabbing to both calfs and one reddened, rough, dry area to posterior right knee. Pt states these areas occasionally itch and are non-tender. Moisturizing lotion applied.
[2022-06-04 17:51] VITALS: BP 180/73; PULSE 65; TEMP 97.7
--- NOTE | 2022-06-04 20:30 | NUR ---
PT SITTING IN RECLINER BUT VERY IMPULSIVE GETTING UP TO BR. PT CALLED HIS . PT'S COMING UP FOR EMOTIONAL SUPPORT. SEROQUEL GIVEN. PT IMPULSIVE. BUT ORIENTED TO PERSON , DATE NAD PLACE. PT VOIDING FREQUENTLY. PT REPORTS HE HAS TO DRINK ALOT OF WATER SO HE CAN VOID. ENC SOME REST NAD SLOW DOWN ON WATERM TONIGHT. HE HAS DRANK AT LEAST 1 1/2LITER. CALL IGHT IN REACH. BED ALARM ON MIDDLE SETTING.
--- NOTE | 2022-06-05 02:18 | NUR ---
PT IMPULSIVE SEVERAL TIMES TONIGHT. BED ALARM SOUNDING. PT STANDING AT DOOR THINKING IT WAS THE BR. ASSISTED PT TO BR. INCONTINENT AT TOILET. CHANGED PANTS AND CLEANED OFF SHOES. PT CALLED HIS FOR PANTS. REMINDED PT IT WAS 0200 IN THE MORNING. SHE WILL BRING MORE CLOTHING TOMORROW. ASSISTED [facility] PANTS FOR THE TIME BEING. BACK TO BED. CALL LIGHT IN REACH. BED ALARM SET.
[2022-06-05 05:17] VITALS: BP 166/63; PULSE 66; TEMP 97.9
[2022-06-05 17:17] VITALS: BP 151/51; PULSE 63; TEMP 97.6
--- NOTE | 2022-06-05 18:18 | NUR ---
Pt Ox4 through shift, denies pain, VSS. Calls appropriately for assist to BR. Requests PRN colace this AM r/t no BM since 06/01. Pt has BSx4 and passing gas. Ambulates well with SBA/walker. Continues to wear [place] C-Collar, removed/inspected skin, no breakdown noted.
--- NOTE | 2022-06-06 05:03 | NUR ---
pt up to restroom frequently during the noc, did not get alot of sleep. uses call light appropriately, ambulates to restroom with walker and sba.
[2022-06-06 05:04] VITALS: BP 168/71; PULSE 73; TEMP 98
--- NOTE | 2022-06-06 06:53 | NUR ---
Shift report received from assistant shift supervisor RN.
--- NOTE | 2022-06-06 10:37 | NUR ---
Pt is currently off the unit for Group Therapy. [place] collar on at all times. Pt ate 100% of his breakfast independently. Pt has had no complaints of pain/discomfort throughout shift so far. No belly pain or nausea. Pt reports passing gas but has not had a BM yet. Will continue to monitor.
--- NOTE | 2022-06-06 11:55 | NUR ---
wondering about when pt's scalp incision sutures would be removed. informed that noelle were removed prior to his [facility] discharge. stating that she was unaware. She is also wondering about when pt should f/u with [facility] Neurosurgery. Call placed to Neurosurgery - per Dr. Delgado's nurse: No need for wound check appt since he is under the care of [facility] at this time. Okay to wash hair. Follow up after [facility] discharge. Will need a repeat Head CT w/o contrast 4 weeks post-op. Okay to obtain images here and then cloud images to [facility] if he is still inpatient. and son informed of this. They had no further questions.
--- NOTE | 2022-06-06 15:41 | NUR ---
Pt up to ambulate in flores w/ FWW, gait belt. Accompanied by nurse.
--- NOTE | 2022-06-06 16:35 | NUR ---
Family meeting rescheduled for at 0930.
[2022-06-06 17:10] VITALS: BP 141/50; PULSE 61; TEMP 98.1
--- NOTE | 2022-06-06 19:15 | NUR ---
pt sitting in recliner, assited to bathroom w walker. incision is cdi. aspen collar in place. mepilex dressings to bilateral elbows due to redness. pt denies needs at this time. call light in reach.
--- NOTE | 2022-06-06 19:43 | NUR ---
pt called for bathroom, when assisting pt he was confused as to where the bathroom was. pt reoriented.
--- NOTE | 2022-06-06 21:09 | NUR ---
in room with patient helping with bedtime routine, this nurse helped assist as well. pt now in bed resting.
[2022-06-07 05:13] VITALS: BP 152/59; PULSE 64; TEMP 97.8
--- NOTE | 2022-06-07 06:57 | NUR ---
BEDSIDE REPORT DONE ORDER WITH NIGHT NURSE
--- NOTE | 2022-06-07 11:01 | NUR ---
ASSESSMENT DONE ORDER. PATIENT ALERT AND ORIENTED BUT VERY INPATIENT WHEN COMING TO THE BATHROOM EDUCATED TO CALL AND WAIT UNTIL NURSE ARRIVED TO PREVENT FALLS.
--- NOTE | 2022-06-07 15:48 | NUR ---
Senior Managing Director met with patient to review and provide copy of team conference notes. Discharge date set for 06/13/22 and patient is agreeable to this. Patient is agreeable to recommendation of outpatient PT/OT/ST at [facility]. Family meeting scheduled for tomorrow morning.
[2022-06-07 17:43] VITALS: BP 122/54; PULSE 73; TEMP 97.6
--- NOTE | 2022-06-07 19:00 | NUR ---
AMB IN [place] SEVERAL ROUNDS WITH ALARM INVESTIGATOR. TOLERATED WELL.
--- NOTE | 2022-06-07 19:53 | NUR ---
FAMILY HERE VISITING.
--- NOTE | 2022-06-07 21:00 | NUR ---
PT USED CALL LIGHT FOR ASSIST AND WAITING FOR STAFF. ASSIST TO BR TO VOID. PT CHANGED INTO NIGHT CLOTHES HIMSELF. CLIMBED INTO BED. DENIES PAIN. ORIENTED AT THIS TIME. CALL LIGHT IN REACH. BED ALARM SET.
--- NOTE | 2022-06-08 02:37 | NUR ---
PT HAS VOIDED SEVERAL TIMES THIS SHIFT. . CLEAR YELLOW URINE. DENIES DYSURIA OR FLANK PAIN. AFEBRILE. PT OCCASIONALLY USES CALL LIGHT APPROPRIATELY FOR ASSIST. BED ALARM HAS SOUNDED SEVERAL TIMES FOR IMPULSIVE BEHAVIOR.
--- NOTE | 2022-06-08 03:34 | NUR ---
BED ALARM SOUNDING. PT SITTING ON SIDE OF BED. ALITTLE CONFUSED. ASSISTED TO BR. THEN LEAVES BR AND RELATES "I NEED TO WALK AROUND SO I CAN PEE." AMBULATED IN ROOM AROUND BED AND RETURNED TO BR. VOIDED. BACK TO BED. BED ALARM SET. CALL LIGHT IN REACH.
--- NOTE | 2022-06-08 04:21 | NUR ---
BED ALARM SOUNDING. PT OUT OF BED. RESTLESS. AMB IN [place] W/EXERCISE EQUIPMENT SPECIALIST THEN BACK TO BED.
[2022-06-08 05:37] VITALS: BP 149/76; PULSE 59; TEMP 98.1
--- NOTE | 2022-06-08 06:39 | NUR ---
BEDSIDE REPORT DONE ORDER WITH NIGHT NURSE PRISCILLA
--- NOTE | 2022-06-08 10:22 | NUR ---
ASSESSMENT DONE ORDER. PATIENT ALERT AND ORIENTED. PATIENT ABLE TO WALK WELL WITH OUT A WALKER. USE THE GAIT BELT THROUGH OUT THE WALKING. PATIENT USE COLLAR BRACE AT ALL TIME.
--- NOTE | 2022-06-08 13:46 | NUR ---
Hostler Helper attended family meeting which included patient's and children. Discharge date moved up to tomorrow, which patient is agreeable to. Therapy team reviewed patient's progress and recommendation for outpatient PT/OT/ST. SW contacted [place] [facility] and faxed referral. SW was advised they could call back before tomorrow's discharge with appointment times.
[2022-06-08 16:45] VITALS: BP 133/51; PULSE 59; TEMP 97.7
--- NOTE | 2022-06-08 21:00 | NUR ---
PT RESTING IN BED. UP TO TAKE HS MEDS AND GO TO BR. STILL VOIDING FREQUENTLY CLEAR YELLOW URINE. ASSISTED BACK TO BED. CALL LIGHT IN REACH. BED ALARM SET.
[2022-06-09 05:23] VITALS: BP 156/51; PULSE 59; TEMP 97.5
--- NOTE | 2022-06-09 06:46 | NUR ---
BEDSIDE REPORT DONE ORDER [facility] NIGHTNURSE PRISCILLA
--- NOTE | 2022-06-09 11:15 | NUR ---
Has lack of transportation kept you from medical appts, meetings, work, or from getting things needed for daily living? NO How often do you feel lonely or isolated from those around you? SOMETIMES Over the past 5 days, how much of the time has pain made it hard for you to sleep? RARELY OR NOT AT ALL Over the past 5 days, how often have you limited your participation in therapy due to pain? RARELY OR NOT AT ALL Over the past 5 days, how often have you limited your day-to-day activities because of pain? RARELY OR NOT AT ALL
--- NOTE | 2022-06-09 11:36 | NUR ---
PATIENT WAS DISCHARGE AT 11:15AM PATIENT HAD NO ISSUE WITH SIGNING DISCHARGE INSTRUCTION. EDUCATED FAMILY AND PATIENT REGARDING UP COMING APPOINTMENT. PATIENT ABLE TO GET UP WITH OUT ANY ISSUE. DID NOT NEED A WALKER OR WHEELCHAIR. EDUCATED TO USE BELT WHEN NEEDED IF PATIENT IS WEAK. PATIENT AND FAMILY UNDERSTOOD. LUNG CLEAR AND BOWEL SOUND ACTIVE.
--- NOTE | 2022-06-09 13:26 | NUR ---
Discharge QIM scores were reviewed by the team. Code of 6 chosen for putting on/taking off footwear was determined by team discussion to be the most usual performance for this patient during the discharge assessment period. Code of 6 chosen for walk 10 feet was determined by team discussion to be the most usual performance for this patient during the discharge assessment period. Code of 6 chosen for walk 50 feet w/ 2 turns was determined by team discussion to be the most usual performance before interventions for this patient during the discharge assessment period. Code of 6 chosen for walk 150 feet was determined by team discussion to be the most usual performance for this patient during the discharge assessment period. Code of 6 chosen for walk 10 feet on uneven surface was determined by team discussion to be the most usual performance for this patient during the discharge assessment period. Code of 6 chosen for 12 steps was determined by team discussion to be the most usual performance for this patient during the discharge assessment period. Code of 6 chosen for picker box operator objects was determined by team discussion to be the most usual performance for this patient during the discharge assessment period.--Monica Hoffman, PD
--- NOTE | 2022-06-09 15:29 | NUR ---
Head Custodian scheduled patient's outpatient therapy appointments and provided them to RN to include in discharge information. SW met with patient to review and present IM. Patient verbalized understanding and provided signature. SW placed form in chart and provided copy to patient. TIM faxed discharge orders to [place] [facility] [employer]
[2022-06-14] MEDS ORDERED: OMNICEF 300MG300 MG PO (12:45)
[2022-06-14] MEDS ORDERED: KEPPRA 500MG500 MG PO (12:45)
== END 2022-06-09 11:15 | disposition home or self-care (01) | DRG 560 ==
PROVIDERS: ADMIT Physical Medicine & Rehabilitation Sports Medicine
DX: S12.100D Unspecified displaced fracture of second cervical vertebra, subsequent encounter for fracture with routine healing (principal); G81.94 Hemiplegia, unspecified affecting left nondominant side; G93.40 Encephalopathy, unspecified; R53.81 Other malaise; W19.XXXD Unspecified fall, subsequent encounter; R26.81 Unsteadiness on feet; R29.810 Facial weakness; S22.42XD Multiple fractures of ribs, left side, subsequent encounter for fracture with routine healing; F41.9 Anxiety disorder, unspecified; N40.1 Benign prostatic hyperplasia with lower urinary tract symptoms; R35.0 Frequency of micturition; F32.A Depression, unspecified; F42.9 Obsessive-compulsive disorder, unspecified; I10 Essential (primary) hypertension; K59.00 Constipation, unspecified; Z73.6 Limitation of activities due to disability; Z87.891 Personal history of nicotine dependence; Z79.899 Other long term (current) drug therapy; Y92.009 Unspecified place in unspecified non-institutional (private) residence as the place of occurrence of the external cause

== ENCOUNTER 2022-06-15 07:59 | Outpatient (RCR) | payer MEDICARE, BC ==
[~2022-06-15 07:59] MED LIST changes: +KEPPRA 500MG500 MG PO; +METAMUCIL PO; +OMNICEF 300MG300 MG PO; +SENNA-S 50 MG-81 TAB PO; +TYLENOL 500MG500 MG PO
--- NOTE | 2022-06-15 15:07 | NUR ---
shop worker was contacted by PCP Nurse in reference to PAtient's discharge on 06-14-22. PCP is asking what home health service was established on discharge. SW contacted Anastasiia, Patient's to verify if home health services were established. Anastasiia reported that they declined home health referral as her and Patient believe that Patient would gain more benefit from outpatient therapy. SW contacted PCP office and reported the above information. PCP reported they will continue to follow.
== END 2022-06-16 | disposition still patient (30) ==
LOC: WSST
DX: S12.100S Unspecified displaced fracture of second cervical vertebra, sequela (principal)

== ENCOUNTER → 2022-07-18 | Outpatient (CLI) | payer MEDICARE, BC ==
[~2022-07-18] MED LIST changes: +MELATONIN3 M1 PO; +MICATIN2% TP; +NORVASC2.5 MG PO; +PROBIOTIC ACID1 EAC3 PO; +TEMOVATE0.052 TP; +ZYPREXA 5MG5 MG PO
== END ==
LOC: COL.RAD 10:09
DX: S06.5XAA Traumatic subdural hemorrhage with loss of consciousness status unknown, initial encounter (principal); G31.1 Senile degeneration of brain, not elsewhere classified; R90.82 White matter disease, unspecified

== ENCOUNTER 2023-10-27 16:13 | Emergency (ER) | payer MEDICARE, BC ==
[~2023-10-27] VITALS: Ht 177.8 cm; Wt 77.3 kg
[2023-10-27 16:22] VITALS: TEMP 98.7
[2023-10-27] MEDS ORDERED: Ondansetron 4 MG/2 ML VIAL IV ONE (16:45)
[2023-10-27] MEDS ORDERED: LR 1,000 ML IV ONE (16:45)
[2023-10-27 17:12] LABS: HEMATOCRIT 44.5 % (42.0-52.0); HEMOGLOBIN 15.3 g/dl (13.5-18.0); MEAN CELL VOLUME 89 fl (80.0-100.0); MEAN CORPUSCULAR HEMOGLOBIN 31 pg (27-31); MEAN CORPUSCULAR HGB CONC 34 g/dl (33.0-37.0); MEAN PLATELET VOLUME 10.7 fl (7.4-10.4); PLATELET COUNT 215 K/mm3 (130-400); RED BLOOD COUNT 5.02 M/mm3 (4.20-5.60); REDCELL DISTRIBUTION WIDTH-CV 13.3 % (11.5-14.5)
[2023-10-27 17:55] LABS: BAND 1 % (0-10); LYMPHOCYTE 12 % (20.0-51.0); NEUTROPHILS 76 % (42.0-75.2); PLATELET ESTIMATE NORMAL (NORMAL)
[2023-10-27 17:58] LABS: COLLECTION METHOD CLEAN CATCH
[2023-10-27 18:02] LABS: ALBUMIN 3.4 g/dL (3.4-4.8); BILIRUBIN,TOTAL 0.6 mg/dL (0.2-1.2); CALCIUM 8.5 mg/dL (8.4-10.2); CREATININE, serum 1.09 mg/dL (0.72-1.25); POTASSIUM 4.2 mEq/L (3.5-4.5); TOTAL PROTEIN 6.3 g/dl (6.2-8.1)
[2023-10-27 18:07] LABS: URINE APPEARANCE Clear (CLEAR/HAZY); URINE BLOOD 1+ (NEGATIVE); URINE COLOR YELLOW (YELLOW); URINE GLUCOSE Negative (NEGATIVE); URINE KETONE TRACE (NEGATIVE); URINE NITRATE Negative (NEGATIVE); URINE PROTEIN(semi-quant) Negative (NEGATIVE); URINE UROBILINOGEN 0.2 E.U/dL (0.2-1.0)
[2023-10-27 18:54] VITALS: BP 168/88; PULSE 83
== END 2023-10-27 18:54 | disposition home or self-care (01) ==
LOC: COL.ER 16:13
PROVIDERS: Emergency Medicine
DX: R11.2 Nausea with vomiting, unspecified (principal)
CPT/HCPCS: J2405; J7120